=== PATIENT | female | born 1985 | race Caucasian/White ===

== ENCOUNTER 2021-05-04 11:49 | Emergency (ER) | payer MEDICAID ==
[~2021-05-04] VITALS: Ht 167.6 cm; Wt 91.0 kg
[~2021-05-04 11:49] MED LIST: AMLO5TAB4 MT; ESOM20CA MT; MELA3TAB71 MT; SERT50TA MT
[2021-05-04 11:53] VITALS: BP 153/104
[2021-05-04] MEDS ORDERED: ASPIRIN 81MG TABLET PO ONE (12:15)
[2021-05-04 12:32] LABS: EOSINOPHILS % 3.5 % (0.0-5.0); HEMATOCRIT. 37.4 % (36.0-48.0); HEMOGLOBIN. 12.5 g/dL (12.0-16.0); LYMPHOCYTES % 23.6 % (20.0-50.0); MEAN CORPUSCULAR HEMOGLOBIN 26.3 pg (28.0-32.0); MEAN CORPUSCULAR VOLUME 78.9 fL (81.0-99.0); MEAN PLATELET VOLUME 9.6 fl (7.4-10.4); MONOCYTES % 6.4 % (2.0-8.0); NEUTROPHILS % 65.5 % (40.0-76.0); PLATELET 301 x1000/uL (130-400); RED BLOOD CELL COUNT 4.74 mill/uL (4.2-5.4); RED CELL DISTRIBUTION WIDTH 15.7 % (11.6-14.6)
[2021-05-04 12:40] LABS: CHLORIDE 108 mEq/L (98-107)
== END 2021-05-04 14:51 | disposition home or self-care (01) ==
LOC: ER 11:49
DX: R07.2 Precordial pain (principal); I10 Essential (primary) hypertension
CPT/HCPCS: 36415; 71045; 80053; 84484; 85025; 93005; 99285